=== PATIENT | male | born 1950 | race Caucasian/White ===

== ENCOUNTER → 2016-12-01 | Day surgery (SDC) | payer MEDICARE ==
[~2016-12-01] MED LIST: AVAPRO150 MG PO; SIMVASTATIN20 MG PO; VICODIN PO; [UNRECOGNIZED DRUG - OTHER] PO
--- NOTE | ~2016-12-01 | OR ---
Unit #: [id number] #: [id number] Patient: MEGA BROWN [id number] [address] [place], [place] [address] [id number] MR#: [id number] NAME: MEGA BROWN. ROOM: Date of Procedure: 11/30/2016 Admission Date: 12/01/2016 Surgeon: Claudio Ragland M.D. : 1950 Attending Physician: Claudio Ragland M.D. Primary Care Physician: Michael Brunner M.D. OPERATIVE REPORT PREOPERATIVE DIAGNOSIS Left hydrocele. POSTOPERATIVE DIAGNOSIS Left hydrocele. PROCEDURE PERFORMED Left hydrocelectomy. ANESTHESIA General with local supplementation. INDICATIONS FOR PROCEDURE This 66-year-old man has a symptomatic hydrocele, at least 8 mm, which he desires to have repaired. DESCRIPTION OF PROCEDURE The patient was given preoperative Kefzol and satisfactory general anesthesia. In the supine position, the left hemiscrotum was clipped of hair, then widely prepped and draped. A transverse oblique incision was made in the upper left hemiscrotum. Noting that with the prep, the patient's scrotum had contracted remarkably. The incision was commenced with a 15 blade and then taken to the level of the hydrocele sac with cautery between forceps. The sac bluntly dissected out with ease and the scrotal contents were expressed. The sac was punctured, aspirated of clear straw-colored fluid, and the hydrocele noted to extend considerably up the base of scrotal area alongside the cord. Thus, there was more high dissection than usual, stripping it off carefully and bluntly, cauterizing a number of vessels in the process and even tying off some extensions of cremasteric fibers with chromic ties. The hydrocele sac was then from the vascular structures, scrotum, testis and epididymis by 1 cm margin with cautery. A vein near the vessels had to be oversewn, but with no proximity to the pulsatile artery or the vas deferens. This testicular color remained normal. An appendix testis was cauterized off and several small appendix epididymis were treated in a similar fashion at the head of the epididymis. A meticulous effort in hemostasis with the Bovie was completed. Then, the scrotal contents were replaced in normal anatomic position, and the wound closed with an inner running 3-0 chromic and an outer vertical mattress 3-0 chromic layer. Triple antibiotic ointment, fluff gauze, and scrotal support were applied after injecting the wound with 10 mL of 0.5% Marcaine. Unit #: [id number] #: [id number] Patient: MEGA BROWN The patient will be discharged with routine instructions to follow up in 2 weeks. Dictated by... Carlos Enrique Antunez/kwasi TD: 12/02/2016 02:35 JOB #: [id number] CC: . OPERATIVE REPORT Page 1 of 1 X Claudio Ragland MD X PROCEDURE OPERATIVE NOTE
--- NOTE | ~2016-12-01 | EKG ---
PATIENT: MEGA BROWN UNIT #: [id number] Ventricular Rate: 70 BPM Atrial Rate: 70 BPM P-R Interval: 168 ms QRS Duration: 92 ms Q-T Interval: 404 ms QTC Calculation(Bezet): 436 ms P [place]: 62 degrees Calculated R [place]: 1 degrees Calculated T [place]: 31 degrees Diagnosis Line: Normal sinus rhythm Diagnosis Line: Normal ECG Diagnosis Line: When compared with ECG of 21-NOV-2010 09:46, Diagnosis Line: No significant change was found Diagnosis Line: Confirmed by YVONNE HUTSON MD ([id number]) on Diagnosis Line: 12/02/2016 6:43:21 AM INTERPRETING LIONEL DYWER
== END | disposition home or self-care (01) ==
LOC: CSUR 07:50
DX: N43.3 Hydrocele, unspecified (principal); I10 Essential (primary) hypertension
CPT/HCPCS: 88302; 93005; J0690; J2250; J2405; J3010